=== PATIENT | female | born 1975 ===

== ENCOUNTER 2022-01-21 22:48 | Observation (INO) ==
[2022-01-21 23:07] LABS: Basophils # 0.1 10*3/uL (0.0-0.2); Basophils % 0.7 % (0.0-0.8); Eosinophils # 0.2 10*3/uL (0.0-0.87); Eosinophils % 3.6 % (0.00-10.9); Hematocrit 40.1 VOL% (35.7-47.0); Hemoglobin 13.2 GM/DL (12.0-16.0); Immature Granulocytes % 0.3 %; Immature Granulocytes Absolute 0.02 #; Lymphocytes # 2.8 10*3/uL (1.4-4.0); Lymphocytes % 41.6 % (21.3-54.2); Mean Corpuscular HGB Conc 32.9 GM/DL (32-36); Mean Corpuscular Volume 93.9 FL (87-102); Mean Platelet Volume 10.5 FL (9.6-12.0); Monocytes # 0.9 10*3/uL (0.11-0.8); Monocytes % 13.2 % (1.7-12.7); Neutrophils % 40.6 % (38.7-73.9); Platelet Count 230 T/CUMM (130-400); Red Blood Count 4.27 MC/CUMM (3.8-5.5); Red Cell Distribution Width 13.4 % (9.3-17.3); White Blood Count 6.7 T/CUMM (4-12)
[2022-01-21 23:25] LABS: Albumin 3.8 G/DL (3.4-5.0); Bilirubin,Total 0.4 MG/DL (0.20-1.00); Calcium 9.7 MG/DL (8.5-10.1); Potassium 3.7 MMOL/L (3.5-5.1); Total Protein 6.8 G/DL (6.4-8.2)
[2022-01-22] MEDS ORDERED: amLODIPine 5 MG TABLET PO STA (03:26)
[2022-01-22] MEDS ORDERED: ALUM/MAG/SIMETH/LIDO VISC 1:1 30 ML BOTTLE PO STA (03:26)
[2022-01-22] MEDS ORDERED: ASPIRIN EC 325 MG TABLET PO STA (03:27)
[2022-01-22] MEDS ORDERED: PANTOPRAZOLE 40 MG VIAL IV STA (03:27)
[2022-01-22] MEDS ORDERED: ENOXAPARIN 100 MG/ML SYRINGE SUBCUT STA (04:18)
[2022-01-22] MEDS ORDERED: ONDANSETRON 4 MG/2 ML VIAL IV STA (04:26)
[2022-01-22] MEDS ORDERED: MORPHINE 2 MG/1 ML SYRINGE IV STA (04:26)
[2022-01-22] MEDS ORDERED: GLUCAGON 1 MG VIAL IM PRN (04:51)
[2022-01-22] MEDS ORDERED: ACETAMINOPHEN 325 MG TABLET PO PRN (04:51)
[2022-01-22] MEDS ORDERED: hydrALAZINE 20 MG/1 ML VIAL IV PRN (04:51)
[2022-01-22] MEDS ORDERED: MORPHINE 2 MG/1 ML SYRINGE IV PRN (04:51)
[2022-01-22] MEDS ORDERED: ONDANSETRON 4 MG/2 ML VIAL IV PRN (04:51)
[2022-01-22] MEDS ORDERED: DEXTROSE 10% 250 ML BAG IV PRN (04:57)
[2022-01-22 06:33] LABS: Risk Ratio 2.53; Thyroid Stimulating Hormone 2.24 uIU/ml (0.358-3.74); VLDL Cholesterol 15.6 MG/DL
[2022-01-22] MEDS ORDERED: PANTOPRAZOLE 40 MG TABLET PO SCH (09:00)
[2022-01-22] MEDS ORDERED: LINACLOTIDE 145 MCG CAPSULE PO PRN (10:15)
[2022-01-22] MEDS: LISINOPRIL/HCTZ 20-12.5 MG TABLET PO SCH (11:08)
[2022-01-22] MEDS: KETOROLAC 30 MG/1 ML VIAL IV SCH ×2 (11:23→18:15)
[2022-01-22] MEDS ORDERED: NITROGLYCERIN SL 0.4 MG TABLET SL ONE (13:17)
[2022-01-22] MEDS ORDERED: KETOROLAC 30 MG/1 ML VIAL IV SCH (18:30)
[2022-01-22] MEDS ORDERED: ENOXAPARIN 40 MG/0.4 ML SYRINGE SUBCUT SCH (21:00)
[2022-01-22] MEDS: PANTOPRAZOLE 40 MG TABLET PO SCH (21:58)
[2022-01-23 05:51] LABS: Bilirubin,Urine Negative (Negative); Blood, Urine Negative (Negative); Glucose,Urine (UA) Negative (Negative); Ketones,Urine Negative (Negative); Nitrite,Urine Negative (Negative); Protein,Urine Negative (Negative); RBC,Urine <1 /HPF (0-4); Squamous Epithelial Cell,Urine Occasional /HPF (0-10); Urine Appearance Clear (Clear); Urine Color Yellow (Yellow); Urine Specific Gravity 1.025 (1.001-1.035); Urine Urobilinogen 0.2 eU/dL (<2.0)
[2022-01-23 06:02] LABS: Barbiturates Screen,Urine Negative (Negative); Benzodiazepines Screen,Urine Negative (Negative); Cannabinoid Screen,Urine Negative (Negative); Opiate Screen,Urine Positive (Negative); Phencyclidine Screen,Urine Negative (Negative)
[2022-01-23] MEDS ORDERED: LACTATED RINGERS 1,000 ML IV SCH (08:00)
[2022-01-23] MEDS ORDERED: propofoL 200 MG/20 ML VIAL IV ONE (09:28)
[2022-01-23] MEDS ORDERED: LIDOCAINE 2% 5 ML VIAL ONE (09:28)
[2022-01-23] MEDS: PANTOPRAZOLE 40 MG TABLET PO SCH (10:32)
[2022-01-23] MEDS: LISINOPRIL/HCTZ 20-12.5 MG TABLET PO SCH (10:32)
[2022-01-23 17:14] VITALS: BP 120/68
== END 2022-01-23 17:18 | disposition home or self-care (01) ==
LOC: N.TELEN 22:48 → N.ED 22:48 → SUATTDRO 01-22 04:51 → N.TELEN 01-22 07:11 → SUATTDRO 01-22 15:14
PROVIDERS: ADMIT Internal Medicine; ATTEND Family Medicine